=== PATIENT | female | born 1965 | race American Indian/Alaskan Native ===

== ENCOUNTER 2018-04-24 07:47 | Emergency (ER) | payer SELFPAY ==
[2018-04-24 07:55] VITALS: BP 184/94
[2018-04-24] MEDS ORDERED: ZOFRAN IM ONE (08:47)
[2018-04-24] MEDS ORDERED: TORADOL IM ONE (08:47)
--- NOTE | 2018-04-24 09:29 | Emergency Department Report ---
ED General Adult HPI - General Chief complaint: Nausea/Vomiting/Diarrhea Stated complaint: BODY PAIN Time Seen by Provider: 04/24/18 08:45 Source: patient Mode of arrival: Ambulatory Limitations: No Limitations - History of Present Illness Initial comments: Patient is a 52-year-old female is presenting with some right ear pain sore throat nausea vomiting bodyaches and cough for the last 2 days. Patient states that pain is 7 out of 10 in severity in the body. Cough is nonproductive. Patient has been able to keep very little food down secondary to vomiting. Patient denies any actual fever or diarrhea at this time. Severity scale (0 -10): 10 - Related Data Previous Rx's Medication Instructions Recorded Last Taken Type ALBUTEROL Inhaler (OR & NICU) 2 puff IH QID PRN #1 inhalation 04/24/18 Unknown Rx [ProAir HFA Inhaler] HYDROcodone/APAP 5-325 [[place] 1 each PO Q4HR PRN #12 tablet 04/24/18 Unknown Rx 5/325] Ibuprofen [Motrin] 800 mg PO Q8HR PRN #20 tablet 04/24/18 Unknown Rx Ondansetron [Zofran Odt] 4 mg PO Q8HR PRN #10 tab.rapdis 04/24/18 Unknown Rx Allergies Allergy/AdvReac Type Severity Reaction Status Date / Time aspirin AdvReac Unknown Verified 04/24/18 07:54 ED Review of Systems ROS: Stated complaint: BODY PAIN Other details as noted in HPI Comment: All other systems reviewed and negative ED Past Medical Hx - Past Medical History Previous Medical History?: Yes Additional medical history: Heart Murmur - Surgical History Past Surgical History?: Yes Additional Surgical History: Tubal ligation 1985 - Social History Smoking Status: Never Smoker Substance Use Type: None - Medications Home Medications: Home Medications Medication Instructions Recorded Confirmed Last Taken Type ALBUTEROL Inhaler (OR & NICU) 2 puff IH QID PRN #1 inhalation 04/24/18 Unknown Rx [ProAir HFA Inhaler] HYDROcodone/APAP 5-325 [[place] 1 each PO Q4HR PRN #12 tablet 04/24/18 Unknown Rx 5/325] Ibuprofen [Motrin] 800 mg PO Q8HR PRN #20 tablet 04/24/18 Unknown Rx Ondansetron [Zofran Odt] 4 mg PO Q8HR PRN #10 tab.rapdis 04/24/18 Unknown Rx ED Physical Exam - General Limitations: No Limitations General appearance: alert, in no apparent distress - Head Head exam: Present: atraumatic, normocephalic - Eye Eye exam: Present: normal appearance, PERRL, EOMI - ENT ENT exam: Present: normal orophraynx, mucous membranes moist, TM's normal bilaterally - Neck Neck exam: Present: normal inspection - Respiratory Respiratory exam: Present: normal lung sounds bilaterally. Absent: respiratory distress, wheezes, rales, rhonchi, chest wall tenderness - Cardiovascular Cardiovascular Exam: Present: regular rate, normal rhythm. Absent: systolic murmur, diastolic murmur, rubs, gallop - GI/Abdominal GI/Abdominal exam: Present: soft, normal bowel sounds. Absent: distended, tenderness, guarding, rebound, rigid - Extremities Exam Extremities exam: Present: normal inspection - Back Exam Back exam: Present: normal inspection - Neurological Exam Neurological exam: Present: alert, oriented X3 - Psychiatric Psychiatric exam: Present: normal affect, normal mood - Skin Skin exam: Present: warm, dry, intact, normal color. Absent: rash ED Course Vital Signs 04/24/18 04/24/18 07:53 09:00 Temperature 98.6 F Pulse Rate 85 Respiratory 18 17 Rate Blood Pressure 184/94 O2 Sat by Pulse 98 Oximetry ED Medical Decision Making - Medical Decision Making He was given Toradol and Zofran for symptom relief in [facility] department. Patient will likely with influenza or influenza-like virus. Patient to be discharged home. Critical care attestation.: If time is entered above; I have spent that time in minutes in the direct care of this critically ill patient, excluding procedure time. ED Disposition Clinical Impression: Flu-like symptoms Disposition: DC-01 TO HOME OR SELFCARE Is pt being admited?: No Does the pt Need Aspirin: No Condition: Stable Referrals: ANDRÉS ZIMMERMAN MD [Primary Care Provider] - 3-5 Days Time of Disposition: 09:28
== END 2018-04-24 09:46 | disposition home or self-care (01) ==
LOC: ED 07:47
DX: J11.1 Influenza due to unidentified influenza virus with other respiratory manifestations (principal); H92.01 Otalgia, right ear; R11.2 Nausea with vomiting, unspecified; Z88.6 Allergy status to analgesic agent; Z98.51 Tubal ligation status
CPT/HCPCS: 96372; 99282; J1885; J2405

== ENCOUNTER 2018-09-29 15:03 | Emergency (ER) | payer SELFPAY ==
--- NOTE | 2018-09-29 15:13 | Emergency Department Report ---
Blank Doc - Documentation Documentation: This is a 53-year-old female that presents with right leg pain. This initial assessment/diagnostic orders/clinical plan/treatment(s) is/are subject to change based on patient's health status, clinical progression and re- assessment by fellow clinical providers in the ED. Further treatment and workup at subsequent clinical providers discretion. Patient/guardians urged not to elope from the ED as their condition may be serious if not clinically assessed and managed. Initial orders include: 1- Patient sent to [facility] for further evaluation and treatment 2- doppler
[2018-09-29 15:16] VITALS: BP 219/87
--- NOTE | 2018-09-29 16:12 | Vascular Lab Report ---
DUPLEX DOPPLER LOWER EXTREMITY VEINS, RIGHT INDICATION: pain. TECHNIQUE: Duplex doppler imaging was performed through the veins of the right lower extremity using venous comp ression and other maneuvers. COMPARISON: None available. FINDINGS: Common Femoral vein: Negative. Superficial Femoral vein: Negative. Popliteal vein: Negative. Calf veins: Negative. Additional findings: Questionable soft tissue mass adjacent to the lateral aspect of the knee recomme nd clinical correlation IMPRESSION: 1. No sonographic evidence for DVT in the right lower extremity. Signer Name: Noah Hartley MD Signed: 09/29/2018 4:08 PM Workstation Name: [id number]
--- NOTE | 2018-09-29 17:42 | Emergency Department Report ---
ED Extremity Problem HPI - General Chief complaint: Extremity Problem,Nontraumatic Stated complaint: PAIN IN (R) LEG Time Seen by Provider: 09/29/18 15:12 Source: patient Mode of arrival: Ambulatory Limitations: No Limitations - History of Present Illness Initial comments: This is a 53-year-old female with history of hypertension controlled with medication presents complaining of right sided ride type pain radiating down to her knees. She says the pain started on Sunday 4 days ago. She denies any injury or trauma falls. Patient states pain is like a sharp intermittent charley horse feeling to her right thigh. She denies fever/chills/nausea vomiting/difficulty walking or loss of sensation. MD Complaint: extremity pain - Related Data Previous Rx's Medication Instructions Recorded Last Taken Type ALBUTEROL Inhaler (OR & NICU) 2 puff IH QID PRN #1 inhalation 04/24/18 Unknown Rx [ProAir HFA Inhaler] HYDROcodone/APAP 5-325 [[place] 1 each PO Q4HR PRN #12 tablet 04/24/18 Unknown Rx 5/325] Ondansetron [Zofran Odt] 4 mg PO Q8HR PRN #10 tab.rapdis 04/24/18 Unknown Rx Cyclobenzaprine [Flexeril] 10 mg PO QHS PRN #20 tablet 09/29/18 Unknown Rx Ibuprofen [Motrin 800 MG tab] 800 mg PO Q8HR PRN #20 tablet 09/29/18 Unknown Rx Allergies Allergy/AdvReac Type Severity Reaction Status Date / Time aspirin AdvReac Unknown Verified 04/24/18 07:54 ED Review of Systems ROS: Stated complaint: PAIN IN (R) LEG Other details as noted in HPI Comment: All other systems reviewed and negative ED Past Medical Hx - Past Medical History Previous Medical History?: Yes Additional medical history: Heart Murmur - Surgical History Past Surgical History?: Yes Additional Surgical History: Tubal ligation 1985 - Social History Smoking Status: Never Smoker Substance Use Type: None - Medications Home Medications: Home Medications Medication Instructions Recorded Confirmed Last Taken Type ALBUTEROL Inhaler (OR & NICU) 2 puff IH QID PRN #1 inhalation 04/24/18 Unknown Rx [ProAir HFA Inhaler] HYDROcodone/APAP 5-325 [[place] 1 each PO Q4HR PRN #12 tablet 04/24/18 Unknown Rx 5/325] Ondansetron [Zofran Odt] 4 mg PO Q8HR PRN #10 tab.rapdis 04/24/18 Unknown Rx Cyclobenzaprine [Flexeril] 10 mg PO QHS PRN #20 tablet 09/29/18 Unknown Rx Ibuprofen [Motrin 800 MG tab] 800 mg PO Q8HR PRN #20 tablet 09/29/18 Unknown Rx ED Physical Exam - General Limitations: No Limitations General appearance: alert, in no apparent distress - Head Head exam: Present: atraumatic, normocephalic - Eye Eye exam: Present: normal appearance - ENT ENT exam: Present: mucous membranes moist - Neck Neck exam: Present: normal inspection - Respiratory Respiratory exam: Present: normal lung sounds bilaterally. Absent: respiratory distress - Cardiovascular Cardiovascular Exam: Present: regular rate, normal rhythm. Absent: systolic murmur, diastolic murmur, rubs, gallop - GI/Abdominal GI/Abdominal exam: Present: soft, normal bowel sounds - Extremities Exam Extremities exam: Present: normal inspection - Expanded Lower Extremity Exam Right Hip exam: Present: normal inspection, full ROM. Absent: tenderness, swelling, abrasion Upper Leg exam: Present: normal inspection, full ROM, tenderness (pain to palpation of the right lateral thigh going to his buttock) Knee exam: Present: normal inspection, full ROM. Absent: tenderness, swelling Lower Leg exam: Present: normal inspection, full ROM. Absent: tenderness, swelling, deformity, dislocation, erythema, Roseline's sign Ankle exam: Present: normal inspection, full ROM Foot/Toe exam: Present: normal inspection, full ROM Neuro vascular tendon exam: Present: no vascular compromise. Absent: motor deficit, sensory deficit Gait: Positive: observed and normal - Back Exam Back exam: Present: normal inspection - Neurological Exam Neurological exam: Present: alert, oriented X3 - Psychiatric Psychiatric exam: Present: normal affect, normal mood - Skin Skin exam: Present: warm, dry, intact, normal color. Absent: rash ED Course Vital Signs 09/29/18 15:12 Temperature 98.6 F Pulse Rate 81 Respiratory 18 Rate Blood Pressure 219/87 O2 Sat by Pulse 100 Oximetry ED Medical Decision Making - Radiology Data Radiology results: report reviewed, image reviewed DUPLEX DOPPLER LOWER EXTREMITY VEINS, RIGHT INDICATION: pain. TECHNIQUE: Duplex doppler imaging was performed through the veins of the right lower extremity using venous compression and other maneuvers. COMPARISON: None available. FINDINGS: Common Femoral vein: Negative. Superficial Femoral vein: Negative. Popliteal vein: Negative. Calf veins: Negative. Additional findings: Questionable soft tissue mass adjacent to the lateral aspect of the knee recommend clinical correlation IMPRESSION: 1. No sonographic evidence for DVT in the right lower extremity. Signer Name: Noah Hartley MD Signed: 09/29/2018 4:08 PM Workstation Name: [id number] Transcribed By: AUDREY Dictated By: Noah Hartley MD Electronically Authenticated By: Noah Hartley MD Signed Date/Time: 09/29/18 1608 - Medical Decision Making 53-year-old female presents with right-sided sciatic nerve pain. Ultrasound Doppler study shows no evidence of DVT. Discussed the patient follow-up with orthopedic surgeon as referred. Discussed rest appropriately and follow up with her primary care physician. Discussed pain medication when necessary for pain Discussed Flexeril nightly for muscle spasm and joint pain Discuss with patient to return to ED with any worsening symptoms Critical care attestation.: If time is entered above; I have spent that time in minutes in the direct care of this critically ill patient, excluding procedure time. ED Disposition Clinical Impression: Lumbar radicular pain, Sciatic nerve pain Disposition: DC- TO HOME OR SELFCARE Is pt being admited?: No Does the pt Need Aspirin: No Condition: Stable Instructions: Lumbar Radiculopathy (ED), Arthralgia (ED) Additional Instructions: Make sure to follow up with the primary care physician as discussed. Take all your medications as you've been prescribed. If you have any worsening symptoms or develop new symptoms please return to ED immediately. Prescriptions: Cyclobenzaprine [Flexeril] 10 mg PO QHS PRN #20 tablet PRN Reason: Muscle Spasm Ibuprofen [Motrin 800 MG tab] 800 mg PO Q8HR PRN #20 tablet PRN Reason: Pain Referrals: MARY BURNHAM MD [Staff Physician] - 3-5 Days [facility] [Provider Group] - 3-5 Days Forms: Accompanied Note, Work/School Release Form(ED) Time of Disposition: 18:27
== END 2018-09-29 18:54 | disposition home or self-care (01) ==
LOC: ED 15:03
DX: M54.16 Radiculopathy, lumbar region (principal); M54.41 Lumbago with sciatica, right side; I10 Essential (primary) hypertension; Z98.890 Other specified postprocedural states; Z98.51 Tubal ligation status; Z79.899 Other long term (current) drug therapy; Z88.6 Allergy status to analgesic agent
CPT/HCPCS: 99283

== ENCOUNTER 2020-07-19 23:37 | Emergency (ER) | payer BC ==
[2020-07-20 00:09] VITALS: BP 136/97
--- NOTE | 2020-07-20 00:12 | XRay Report ---
RIGHT SHOULDER 3 VIEWS INDICATION / CLINICAL INFORMATION: Right shoulder pain for 2 weeks without a known injury. COMPARISON: None available. FINDINGS: BONES and JOINT(S): No acute fracture or subluxation. No significant arthritis. SOFT TISSUES: No significant abnormality. ADDITIONAL FINDINGS: None. IMPRESSION: 1. No acute findings. Signer Name: Sánchez Dey MD Signed: 07/20/2020 12:07 AM Workstation Name: [id number]
[2020-07-20] MEDS ORDERED: HYDROcodone/ACETAMINOPHEN 5-325 MG TAB PO STA (01:43)
--- NOTE | 2020-07-20 02:00 | Emergency Department Report ---
ED Upper Extremity Inj HPI - General Chief Complaint: Extremity Injury, Upper Stated Complaint: RT SHOULDER PAIN Time Seen by Provider: 07/20/20 00:28 Source: patient Mode of arrival: Ambulatory Limitations: No Limitations - History of Present Illness Initial Comments: 35-year-old female [facility] emerge department complaining of pain to the right shoulder that worsens when she tries to lift [id number] carries a neurologist. Reports no numbness or tingling, no fever chills or sweats. No chest pain palpitations shortness of breath. Sinus she was lifting anything preceding the injury/pain MD Complaint: Injury to:: right, shoulder -: Sudden, days(s) Other Extremity Injury: Shoulder: Right Handedness: right Place: home Improves With: none Worsens With: none Context: other - Related Data Previous Rx's Medication Instructions Recorded Last Taken Type Albuterol Mdi (or & Nicu Only) 2 puff IH QID PRN #1 inhalation 04/24/18 Unknown Rx [ProAir HFA Inhaler] HYDROcodone/APAP 5-325 [[place] 1 each PO Q4HR PRN #12 tablet 04/24/18 Unknown Rx 5/325] Ondansetron [Zofran Odt] 4 mg PO Q8HR PRN #10 tab.rapdis 04/24/18 Unknown Rx Cyclobenzaprine [Flexeril] 10 mg PO QHS PRN #20 tablet 09/29/18 Unknown Rx Ibuprofen [Motrin 800 MG tab] 800 mg PO Q8HR PRN #20 tablet 09/29/18 Unknown Rx predniSONE [Deltasone] 20 mg PO QDAY #7 tab 07/20/20 Unknown Rx traMADoL [Ultram] 50 mg PO Q6HR PRN #20 tablet 07/20/20 Unknown Rx Allergies Allergy/AdvReac Type Severity Reaction Status Date / Time aspirin AdvReac Unknown Verified 04/24/18 07:54 ED Review of Systems ROS: Stated complaint: RT SHOULDER PAIN Other details as noted in HPI Comment: All other systems reviewed and negative ED Past Medical Hx - Past Medical History Additional medical history: Heart Murmur - Surgical History Additional Surgical History: Tubal ligation 1985 - Social History Smoking Status: Never Smoker - Medications Home Medications: Home Medications Medication Instructions Recorded Confirmed Last Taken Type Albuterol Mdi (or & [place]u Only) 2 puff IH QID PRN #1 inhalation 04/24/18 Unknown Rx [ProAir HFA Inhaler] HYDROcodone/APAP 5-325 [[place] 1 each PO Q4HR PRN #12 tablet 04/24/18 Unknown Rx 5/325] Ondansetron [Zofran Odt] 4 mg PO Q8HR PRN #10 tab.rapdis 04/24/18 Unknown Rx Cyclobenzaprine [Flexeril] 10 mg PO QHS PRN #20 tablet 09/29/18 Unknown Rx Ibuprofen [Motrin 800 MG tab] 800 mg PO Q8HR PRN #20 tablet 09/29/18 Unknown Rx predniSONE [Deltasone] 20 mg PO QDAY #7 tab 07/20/20 Unknown Rx traMADoL [Ultram] 50 mg PO Q6HR PRN #20 tablet 07/20/20 Unknown Rx ED Physical Exam - General Limitations: No Limitations General appearance: alert, in no apparent distress - Head Head exam: Present: atraumatic, normocephalic - Eye Eye exam: Present: normal appearance - ENT ENT exam: Present: mucous membranes moist - Neck Neck exam: Present: normal inspection - Respiratory Respiratory exam: Present: normal lung sounds bilaterally. Absent: respiratory distress - Cardiovascular Cardiovascular Exam: Present: regular rate, normal rhythm. Absent: systolic m urmur, diastolic murmur, rubs, gallop - GI/Abdominal GI/Abdominal exam: Present: soft, normal bowel sounds - Extremities Exam Extremities exam: Present: normal inspection, tenderness - Expanded Upper Extremity Exam Right Shoulder Exam: Present: tenderness (Gardner test and Walker's test.). Absent: laceration, ecchymosis, deformity, dislocation, erythema, tenderness over AC joint - Back Exam Back exam: Present: normal inspection - Neurological Exam Neurological exam: Present: alert, oriented X3 - Psychiatric Psychiatric exam: Present: normal affect, normal mood - Skin Skin exam: Present: warm, dry, intact, normal color. Absent: rash ED Course Vital Signs 07/19/20 23:45 Temperature 98.6 F Pulse Rate 86 Respiratory 16 Rate Blood Pressure 136/97 O2 Sat by Pulse 99 Oximetry ED Medical Decision Making - Radiology Data Radiology results: report reviewed [address] [place] [id number] XRay Report Signed Patient: FROYLAN OTT MR#: [id number] : 1965 Acct:[id number] Age/Sex: 55 / F ADM Date: 07/19/20 Loc: ED Attending Dr: Ordering Physician: RICARDO LEON MD Date of Service: 07/19/20 Procedure(s): XR shoulder 2+V RT Accession Number(s): [id number] cc: RICARDO LEON MD Fluoro Time In Minutes: RIGHT SHOULDER 3 VIEWS INDICATION / CLINICAL INFORMATION: Right shoulder pain for 2 weeks without a known injury. COMPARISON: None available. FINDINGS: BONES and JOINT(S): No acute fracture or subluxation. No significant arthritis. SOFT TISSUES: No significant abnormality. ADDITIONAL FINDINGS: None. IMPRESSION: 1. No acute findings. Signer Name: Sánchez Dey MD Signed: 07/20/2020 12:07 AM Workstation Name: [id number] Transcribed By: WESLEY Dictated By: Sánchez Dey MD Electronically Authenticated By: Sánchez Dey MD Signed Date/Time: 07/20/206 DD/ TD/TT: Print Critical care attestation.: If time is entered above; I have spent that time in minutes in the direct care of this critically ill patient, excluding procedure time. ED Disposition Clinical Impression: Shoulder pain Disposition: DC- TO HOME OR SELFCARE Is pt being admited?: No Does the pt Need Aspirin: No Condition: Stable Instructions: How to Use Cold Therapy, [id number], Shoulder Pain, [id number] Additional Instructions: Please follow-up with your orthopedist for follow-up for further more evaluation and treatment options. You will need an MRI for definitive diagnostics Prescriptions: predniSONE [Deltasone] 20 mg PO QDAY #7 tab traMADoL [Ultram] 50 mg PO Q6HR PRN #20 tablet PRN Reason: Pain Referrals: PRIMARY CARE, [Primary Care Provider] - 3-5 Days MARY BURNHAM MD [Staff Physician] - 3-5 Days
== END 2020-07-20 02:53 | disposition home or self-care (01) ==
LOC: ED 23:37
DX: M25.511 Pain in right shoulder (principal); Z98.890 Other specified postprocedural states; Z79.1 Long term (current) use of non-steroidal anti-inflammatories (NSAID); Z79.899 Other long term (current) drug therapy; Z88.8 Allergy status to other drugs, medicaments and biological substances